=== PATIENT | male | born 1995 | race African-American/Black ===

== ENCOUNTER 2017-04-22 10:43 | Emergency (ER) | payer SELFPAY ==
[~2017-04-22] VITALS: Ht 167.6 cm; Wt 79.4 kg
[2017-04-22 11:31] VITALS: BP 133/83
== END 2017-04-22 11:44 | disposition home or self-care (01) ==
LOC: ER 10:43
DX: K29.00 Acute gastritis without bleeding (principal); K21.9 Gastro-esophageal reflux disease without esophagitis; F17.210 Nicotine dependence, cigarettes, uncomplicated
CPT/HCPCS: 93005

== ENCOUNTER 2017-04-30 10:09 | Emergency (ER) | payer SELFPAY ==
[~2017-04-30] VITALS: Ht 167.6 cm; Wt 85.7 kg
[2017-04-30 10:41] VITALS: BP 132/76
== END 2017-04-30 11:18 | disposition home or self-care (01) ==
LOC: ER 10:09
DX: K29.00 Acute gastritis without bleeding (principal); F17.210 Nicotine dependence, cigarettes, uncomplicated; Z91.013 Allergy to seafood

== ENCOUNTER 2017-06-26 10:45 | Emergency (ER) | payer SELFPAY ==
[~2017-06-26] VITALS: Ht 167.6 cm; Wt 81.6 kg
[2017-06-26 16:30] VITALS: BP 120/77
== END 2017-06-26 16:57 | disposition home or self-care (01) ==
LOC: ER 10:45
DX: K52.9 Noninfective gastroenteritis and colitis, unspecified (principal); F17.210 Nicotine dependence, cigarettes, uncomplicated; F12.10 Cannabis abuse, uncomplicated; Z91.013 Allergy to seafood

== ENCOUNTER 2017-08-29 07:57 | Emergency (ER) | payer SELFPAY ==
[~2017-08-29] VITALS: Ht 172.7 cm; Wt 80.5 kg
[2017-08-29 08:15] VITALS: BP 120/71
[2017-08-29] MEDS ORDERED: cefTRIAXone SOD 1,000 MG VL IM ONE (08:30)
== END 2017-08-29 08:38 | disposition home or self-care (01) ==
LOC: ER 07:57
DX: J03.90 Acute tonsillitis, unspecified (principal); F17.210 Nicotine dependence, cigarettes, uncomplicated; Z91.013 Allergy to seafood
CPT/HCPCS: 96372; 99283; J0696

== ENCOUNTER 2017-09-23 11:40 | Emergency (ER) | payer SELFPAY ==
[~2017-09-23] VITALS: Ht 170.2 cm; Wt 79.5 kg
[2017-09-23 11:55] VITALS: BP 125/80
== END 2017-09-23 12:29 | disposition home or self-care (01) ==
LOC: ER 11:40
DX: R12 Heartburn (principal); R11.2 Nausea with vomiting, unspecified; R19.7 Diarrhea, unspecified; F17.210 Nicotine dependence, cigarettes, uncomplicated; F12.10 Cannabis abuse, uncomplicated; Z91.013 Allergy to seafood

== ENCOUNTER 2024-09-05 01:30 | Emergency (ER) | payer MEDICAID ==
[~2024-09-05] VITALS: Ht 172.7 cm; Wt 91.0 kg
[2024-09-05 01:30] VITALS: BP 125/76; PULSE 91; RESP 20; O2SAT 97
--- NOTE | 2024-09-05 01:56 | ED.PDOC ---
GI ASSESSMENT HPI Comments 28-year-old male came to ER via EMS due to nausea and vomiting. Patient has been binge drinking alcohol for the past 2 days. States he has been depressed recently. Denies being suicidal. For the past few hours he has been having bouts of nausea and vomiting. Chief Complaint: Nausea/Vomiting Time Seen by MD: 01:54 Primary Care Provider: NONE Reviewed Notes: Landscape Contractor Notes Allergies: Coded Allergies: Penicillins (Verified Allergy, Unknown, 03/30/24) Uncoded Allergies: SHELLFISH (Allergy, Severe, RASH, 04/22/17) Information Source: Patient, Emergency Med Personnel Mode of Arrival: Ambulatory Timing: Days Duration: Since onset Quality: Aching, Cramping Vomitus: Watery Stool: Normal Severity: Moderate Recent: Ingestion of ETOH Pain Location: Epigastric Associated sign and symptoms: Nausea, Vomiting, Abdominal Pain Review of Systems REVIEW OF SYSTEMS: No fever, no chills, or fatigue HEENT: No sore throat, no earache, no congestion, no neck pain. Cardiac: No chest pain. No palpitations. Lungs: No shortness of breath, no cough. GI: (+) nausea, (+) vomiting, no diarrhea, no constipation, (+) abdominal pain : No dysuria, frequency, or urgency. No hematuria. Musculoskeletal: No joint pain , no joint swelling, no extremity edema. Skin: No rash, no itching. Neuro: No headache, no dizziness, no weakness Vital Signs Vital Signs Date Time Temp Pulse Resp B/P (MAP) Pulse Ox O2 Delivery O2 Flow Rate FiO2 09/05/24 01:30 97.7 91 20 125/76 (92) 97 Physical Exam General: Awake, alert and oriented. No acute distress. Skin: Skin in warm, dry and intact. Appropriate color for ethnicity. Nailbeds pink with no cyanosis. HEENT: The head is normocephalic and atraumatic. Conjunctivae are clear without exudates or hemorrhage. Sclera is non-icteric. EOM are intact. No signs of nystagmus. Eyelids are normal in appearance without swelling or lesions. Oral mucosa is pink and moist Neck: The neck is supple with normal range of motion. No JVD. Cardiac: Heart rate and rhythm are normal. No murmurs, gallops, or rubs are auscultated. Respiratory: No signs of respiratory distress. Lung sounds are clear in all lobes bilaterally without rales, ronchi, or wheezes. Abdominal: Abdomen is soft, non-tender without distention. Bowel sounds are present and normoactive in all four quadrants. Extremities: Upper and lower extremities are atraumatic in appearance without deformity or edema. Neurological: The patient is awake, alert and oriented to person, place, and time with normal speech. Speech is clear. There is no facial asymmetry. Psychiatric: Appropriate mood and affect. Good judgement and insight. No visual or auditory hallucinations. Past Medical History PAST MEDICAL HISTORY: Denies Surgical History: Denies all surgeries Family History Family History: Reviewed,noncontributory to illness Social History Smoker: Less Than 1 Pack/Day Alcohol: Heavy Drugs: Marijuana Lives In: Home Was a procedure done? Was a procedure done?: No GI differential Dx Differential Diagnosis: Diverticular disease, Gastritis/PUD, Gastroenteritis, Pancreatitis, Dehydration, Other (Alcohol intoxication) X-Ray, Labs, Meds, VS Vital Signs Date Time Temp Pulse Resp B/P (MAP) Pulse Ox O2 Delivery O2 Flow Rate FiO2 09/05/24 01:30 97.7 91 20 125/76 (92) 97 Time of 1ST Reevaluation: 01:52 Reevaluation 1ST: Unchanged Patient Education/Counseling: Diagnosis, Treatment Family Education/Counseling: No Family Present Departure 1 Departure Time of Disposition: 05:34 Impression: Primary Impression: Nausea and vomiting Additional Impressions: Alcohol intoxication Eloped from emergency department Disposition: 07 LEFT AWOL/ELOPED Condition: Stable Comments 28-year-old male who presents to the emergency department with nausea and vomiting. Patient's girlfriend called EMS. Patient eloped from the emergency department prior to diagnostic evaluation and treatment. Critical Care Note Critical Care Time?: No Stability Stability form required: No Heart Score Heart Score: Heart Score Response (Comments) Value History N/A 0 EKG N/A 0 Age N/A 0 Risk Factors N/A 0 Troponin N/A 0 Total 0 I personally scribed for RODOLFO CONTRERAS MD ([email or web address]) on 09/05/24 at 01:56. Electronically submitted by Reggie Menjivar ([email or web address]). RODOLFO CONTRERAS MD Sep 05, 2024 01:56
== END 2024-09-05 02:17 | disposition left against medical advice (07) ==
LOC: ER 01:30 → EDBD 01:30 → ER 02:17
DX: R11.2 Nausea with vomiting, unspecified (principal); F12.90 Cannabis use, unspecified, uncomplicated; F17.200 Nicotine dependence, unspecified, uncomplicated; Z88.0 Allergy status to penicillin; Y90.1 Blood alcohol level of 20-39 mg/100 ml

== ENCOUNTER 2024-11-02 21:36 | Emergency (ER) | payer MEDICAID ==
[~2024-11-02] VITALS: Ht 170.2 cm; Wt 84.0 kg
[2024-11-02 21:55] VITALS: BP 114/76; PULSE 80; TEMP 97.9
[2024-11-02 22:02] VITALS: RESP 14; O2SAT 95
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
--- NOTE | 2024-11-02 22:39 | DVH ---
Procedure: CT CHEST WITHOUT CONTRAST Reason for study/Clinical History: chest wall pain Comparison Study: NoneNone available at time of dictation. Exam Date: 11/02/2024 10:06 PM TECHNIQUE: Multidetector CT of the chest was performed from the lung apices to the upper abdomen with out the use of intravenous contract. Axial, coronal and sagittal multiplanar reformats were performed . Radiation Dose Information: CT Dose: CTDI volume is 9.25 mGy. Dose-length product is 388.56 mGy*cm The dose indicators for CT are the volume Computed Tomography (CT) Dose Index (CTDIvol) and the Dose Length Product (DLP), and are measured in units of mGy and mGy-cm, respectively. These indicators are not patient dose, but values generated from the CT scanner acquisition factors. The report includes radiation exposure data for exposures received during this examination. FINDINGS: Lower neck: Unremarkable. Lungs: No consolidation or other abnormality. Pleura: No pleural effusion or pneumothorax. Heart/Vascular Structures: Normal heart size. No pericardial effusion. Unremarkable thoracic aorta. Mediastinum / Lymph Nodes: No abnormality demonstrated. No lymphadenopathy. Musculoskeletal: No osseous abnormality noted. Soft tissues: Unremarkable. Visualized Upper abdomen: Unremarkable. IMPRESSION: No abnormality demonstrated. Radiation optimization: All CT scans at this facility use at least one of these dose optimization michelle hniques: automated exposure control mA and/or kV adjustment per patient size (includes targeted exam s where dose is matched to clinical indication) or iterative reconstruction.
--- NOTE | 2024-11-05 12:41 | ECG ---
[facility] Test Date: 2024-11-02 Test Time: 21:44:14 Pat Name: SUNG GILMAN Department: ED Room: Gender: M Structural Metal Worker: LILLY : 1995 Requested By: CHRISTIE MG Order Number: [id number] Reading MD: Jaylen Beyer Measurements Intervals Axson Rate: 81 P: 51 MN: 117 QRS: 82 QRSD: 95 T: -7 QT: 357 QTc: 415 Interpretive Statements Sinus rhythm Borderline short MN interval Borderline T abnormalities, inferior leads Electronically Signed On 11-05-2024 20:47:11 PDT by Jaylen Beyer Please click the below link to view image of tracing.
== END 2024-11-02 23:00 | disposition home or self-care (01) ==
LOC: ER 21:36 → EEVIPCON 21:36 → ER 22:58
DX: R07.89 Other chest pain (principal); F12.90 Cannabis use, unspecified, uncomplicated; F17.210 Nicotine dependence, cigarettes, uncomplicated; Z88.0 Allergy status to penicillin
CPT/HCPCS: 71250; 93005